=== PATIENT | female | born 2000 | race Caucasian/White ===

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

== ENCOUNTER 2018-08-19 20:40 | Emergency (ER) | payer BC ==
[~2018-08-19] VITALS: Ht 157.5 cm; Wt 69.0 kg
[~2018-08-19 20:40] MED LIST: AMOX250S4 PO; IBUP100O28 PO
[2018-08-19 20:43] VITALS: Ht 157.5 cm; Wt 69.0 kg
[2018-08-19] MEDS: HYDROCODONE/APAP (10/325) TAB PO ONE ×2 (22:27→22:30)
--- NOTE | 2018-08-19 23:48 | ERD ---
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 Denies shortness of breath, nausea, vomiting or diaphoresis. No leg pain or swelling. Does not take hormones. Patient is also concerned about inverted left nipple she has had since . No pain or nipple discharge. No skin changes. Denies abdominal pain or back pain. Not sexually active. Denies anorexia, weight loss, night sweats, fevers or chills. ROS All systems reviewed and are negative except as per history of present illness. Medications Home Meds No Active Prescriptions or Reported Meds Allergies Allergies: Coded Allergies: No Known Drug Allergies (Verified Allergy, Unknown, 11/30/16) PMhx/Soc Medical and Surgical Hx: pt denies Medical Hx, pt denies Surgical Hx History of Surgery: No Anesthesia Reaction: No Hx Neurological Disorder: No Hx Respiratory Disorders: No Hx Cardiac Disorders: No Hx Psychiatric Problems: No Hx Miscellaneous Medical Probl: No Hx Alcohol Use: No Hx Substance Use: No Hx Tobacco Use: No Smoking Status: Never smoker FmHx No cancer, coronary artery disease or coagulation disorders. Physical Exam Vitals Temperature 96.4. Pulse: 88. Respirations: 18. Blood pressure 151/85. O2 saturation 100%. Repeat vital signs performed 10 minutes later: Temperature 98.0 and blood pressure 115/95. Physical Exam Const: Anxious but in no acute distress Head: Atraumatic Eyes: Normal Conjunctiva ENT: Normal External Ears, Nose and Mouth. Neck: Full range of motion. No meningismus. Resp: Clear to auscultation bilaterally Cardio: Regular rate and rhythm, no murmurs Abd: Soft, non tender, non distended. Normal bowel sounds Chest Wall: Breast exam performed with the nurse and patient's mother at bedside. Nontender. Noo skin changes. No palpable masses. Inverted left nipple. No discharge or bleeding. No axillary tenderness or lymphadenopathy. Skin: No petechiae or rashes Back: No midline or flank tenderness Ext: No cyanosis, or edema Neur: Awake and alert Psych: Anxious but not depressed. Results 24 hrs Current Medications Medications Dose Sig/Breann Start Time Status Last (Trade) Ordered Route PRN Stop Time Admin Dose Reason Admin 1 tab ONCE ONCE 08/19/18 DC Acetaminophen PO 22:30 / 08/19/18 22:31 Hydrocodone Bitart ([place] ()) Procedures/MDM DOCUMENTS REVIEWED: ED nurse, no prior records available. EKG: Time: 2045. Sinus rhythm. Ventricular rate 78, normal NC and QRS intervals. No acute ST segment elevation or depression. No axis deviation or ectopy. My Interpretation: Normal EKG IMAGING: Chest AP portable. Cardiac silhouette is normal. The costophrenic angles are clear. No effusion or infiltrates. 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 EKG is normal. Chest x-ray is negative for infiltrate, effusion, cardiomegaly or pneumothorax. Serious etiology including acute coronary syndrome, pulmonary embolism and aortic dissection are unlikely hence labs and advanced imaging studies are deferred. Patient concerned about a left inverted nipple she has had since . No skin changes or discharge. No masses or lymphadenopathy. An occult neoplasm is not ruled out and further evaluation including possible breast imaging may be indicated but is deferred to her primary care physician. Triage blood pressure was elevated, likely due to whitecoat hypertension but multiple subsequent rechecks with normal. Patient understands that the diagnosis is not definitively established serious etiology of her symptoms is certainly possible and urgent, outpatient follow-up is mandatory. However, in the absence of signs of serious, acute disease she is stable for discharge with precautionary instructions and outpatient follow-up as counseled. Counseled patient and family regarding diagnostic workup, diagnosis and need for followup. Understands to return to ED if symptoms recur, worsen or any other concerns. Departure Diagnosis: Primary Impression: Chest pain with low risk for cardiac etiology Additional Impression: Inverted nipple Condition: Stable ALBERTA WRAY MD Aug 19, 2018 23:48
[2018-08-20 00:17] VITALS: BP 120/84; PULSE 92; RESP 15
== END 2018-08-20 00:17 | disposition home or self-care (01) ==
LOC: E/R 20:40
DX: R07.89 Other chest pain (principal)
CPT/HCPCS: 71045; 93005; Z7502